=== PATIENT | female | born 1985 | race Caucasian/White ===

== ENCOUNTER 2018-06-22 00:42 | Inpatient (IN) | payer OTHER ==
[2018-06-22] VITALS (8 sets, daily range): BP systolic 92–144; BP diastolic 51–80; PULSE 61–82; TEMP 97.9–98
[~2018-06-22] VITALS: Ht 160 cm; Wt 80.0 kg
[~2018-06-22 00:42] MED LIST: IBU800 M1 PO; PERCOCET 325 MG1 TA2 PO; PRENATAL MVI
[2018-06-22 02:58] LABS: BASO % 0.3 % (0.0-2.0); EOS # 0.1 (0.0-0.7); EOS % 0.8 % (0-4.0); GRAN # 6.7 (1.4-6.5); GRAN % 64.4 % (42.2-75.2); LYMPH # 2.6 (1.2-3.4); LYMPH % 24.6 % (20.0-51.0); MEAN CELL VOLUME 80 fl (80.0-100.0); MEAN CORPUSCULAR HEMOGLOBIN 25 pg (27.0-31.0); MEAN CORPUSCULAR HGB CONC 32 g/dl (33.0-37.0); MEAN PLATELET VOLUME 11.6 fl (7.4-10.4); MONO % 9.4 % (1.7-9.3); PLATELET COUNT 182 K/mm3 (130-400); RED BLOOD COUNT 4.33 M/mm3 (4.10-5.30); REDCELL DISTRIBUTION WIDTH-CV 14.3 % (11.5-14.5)
[2018-06-22 03:08] LABS: HEMATOCRIT 34.6 % (37.0-47.0)
[2018-06-23 07:31] LABS: BASO % 0.3 % (0.0-2.0); EOS # 0.1 (0.0-0.7); EOS % 1.6 % (0-4.0); GRAN # 5.2 (1.4-6.5); GRAN % 59.7 % (42.2-75.2); HEMOGLOBIN 10.1 g/dl (12.5-16.0); LYMPH # 2.6 (1.2-3.4); LYMPH % 29.2 % (20.0-51.0); MEAN CELL VOLUME 84 fl (80.0-100.0); MEAN CORPUSCULAR HEMOGLOBIN 26 pg (27.0-31.0); MEAN CORPUSCULAR HGB CONC 30 g/dl (33.0-37.0); MEAN PLATELET VOLUME 11.2 fl (7.4-10.4); MONO # 0.8 (0.1-0.6); MONO % 8.6 % (1.7-9.3); PLATELET COUNT 133 K/mm3 (130-400); RED BLOOD COUNT 3.96 M/mm3 (4.10-5.30); REDCELL DISTRIBUTION WIDTH-CV 14.6 % (11.5-14.5)
[2018-06-23 07:36] LABS: HEMATOCRIT 33.3 % (37.0-47.0)
[2018-06-23 08:15] VITALS: BP 111/70; PULSE 85; TEMP 98.4
[2018-06-23] MEDS ORDERED: MOTRIN 600600 MG/TAB PO (08:33)
[2018-06-23] MEDS ORDERED: PERCOCET 325 MG1 TA2 PO (08:33)
[2018-06-23 16:45] VITALS: BP 107/74; PULSE 79; TEMP 98.4
[2018-06-23 21:30] VITALS: BP 124/71; PULSE 64; TEMP 98.4
[2018-06-24 08:45] VITALS: BP 115/71; PULSE 76; TEMP 97.7
== END 2018-06-24 12:30 | disposition home or self-care (01) | DRG 775 ==
LOC: LDRO 00:42 → OB 00:50 → LDR 00:50 → OB 04:00
PROVIDERS: Obstetrics & Gynecology
PROC: 10E0XZZ Delivery of Products of Conception, External Approach (ICD-10-PCS; principal; 2018-06-22)
PROC: 0HQ9XZZ Repair Perineum Skin, External Approach (ICD-10-PCS; 2018-06-22)
DX: O70.0 First degree perineal laceration during delivery (principal); O99.12 Other diseases of the blood and blood-forming organs and certain disorders involving the immune mechanism complicating childbirth; Z3A.38 38 weeks gestation of pregnancy; Z37.0 Single live birth; D69.6 Thrombocytopenia, unspecified
CPT/HCPCS: J2590; J7120